=== PATIENT | female | born 1970 | race Two or more races ===

== ENCOUNTER 2024-04-30 17:59 | Emergency (ER) | payer OTHER ==
[~2024-04-30] VITALS: Ht 170.2 cm; Wt 90.7 kg
[2024-04-30] MEDS ORDERED: CODEINE SULFATE30 MG (18:06)
[2024-04-30] MEDS ORDERED: 0.9 % SODIUM CHLORIDE 1,000 ML IV SCH (18:15)
[2024-04-30 18:42] LABS: HEMATOCRIT 37.2 % (36.0-45.00); MEAN CELL VOLUME 89.2 fL (80.00-100.00); MEAN CORPUSCULAR HEMOGLOBIN 28.7 pg (27.00-32.0); MEAN CORPUSCULAR HGB CONC 32.2 g/dl (32.0-36.0); PLATELET COUNT 221 K/uL (150-450); RED BLOOD COUNT 4.17 M/uL (4.00-6.00)
[2024-04-30 19:01] LABS: ALBUMIN 3.8 gm/dL (3.4-5.0); BILIRUBIN TOTAL 0.74 mg/dL (0.3-1.2); CALCIUM 9.1 mg/dL (8.5-10.1); CREATININE SERUM 0.96 mg/dL (0.55-1.02); GFR 60.8; GLOBULINA 3.3 G/DL (2.4-3.5); POTASSIUM 3.5 mEq/L (3.5-5.1); TOTAL PROTEIN 7.1 gm/dL (6.4-8.2)
[2024-04-30] MEDS ORDERED: KETOROLAC TROMETHAMINE 30 MG VIAL IV ONE (20:15)
[2024-04-30] MEDS ORDERED: KETOROLAC TROMETHAMINE 30 MG VIAL ONE (20:19)
== END 2024-04-30 20:33 | disposition home or self-care (01) ==
LOC: ER 17:59
PROVIDERS: General Practice
DX: R25.2 Cramp and spasm (principal)